=== PATIENT | female | born 1955 | race Caucasian/White ===

== ENCOUNTER 2021-08-13 10:01 | Outpatient (CLI) | payer BC | END 2021-08-13 10:02 | disposition home or self-care (01) | LOC: RAD-FRANK 10:01 | PROVIDERS: ATTEND Nurse Practitioner Family | DX: M25.561 Pain in right knee (principal); M25.861 Other specified joint disorders, right knee ==

== ENCOUNTER 2022-04-10 14:15 | Outpatient (CLI) | payer BC ==
[2022-04-10 15:35] LABS: #Basophils 0.1 10x3/uL (0.0-0.2); #Eosinphils 0.1 10x3/uL (0.0-0.5); #Monocytes 0.7 10x3/uL (0.0-1.1); #Neutrophils 4.5 10x3/uL (1.5-8.4); %Basophils 1.1 % (0.0-2.0); %Eosinophils 1.1 % (0.0-6.0); %Lymphocytes 24.6 % (18.0-47.0); %Monocytes 9.1 % (0.0-10.0); %Neutrophils 63.8 % (40.0-75.0); Hemoglobin 12.3 g/dL (12.0-15.5); Mean Corpuscular HGB CONC 33.2 g/dL (32.0-36.0); Mean Corpuscular Hemoglobin 31.1 pg (27.0-33.0); Mean Corpuscular Volume 93.7 fl (81.6-98.3); Platelet Count 346 10x3/uL (150-450); RBC Distribution Width 12.7 % (11.5-14.5); Red Blood Cell (RBC) Count 3.96 10x6/uL (3.90-5.03); White Blood Cell (WBC) Count 7.1 10x3/uL (3.5-10.5)
[2022-04-10 15:50] LABS: Anion Gap 16 mmol/L (10-20); BUN (Urea Nitrogen) 30 mg/dL (9.8-20.1); Calc. Creatinine Clearance 0 mL/min (70-130); Calcium 9.6 mg/dL (7.8-10.44); Carbon Dioxide 27 mmol/L (23-31); Chloride 103 mmol/L (98-107); Estimated GFR 76; Glucose 111 mg/dL (80-115); Potassium 4.2 mmol/L (3.5-5.1); Sodium 142 mmol/L (136-145)
[2022-04-10 16:34] LABS: Prothrombin Time 10.9 sec (9.5-12.1)
== END 2022-04-10 14:16 | disposition home or self-care (01) ==
LOC: LABBT 14:15
PROVIDERS: ATTEND Orthopaedic Surgery
DX: Z01.812 Encounter for preprocedural laboratory examination (principal); M17.11 Unilateral primary osteoarthritis, right knee; Z20.822 Contact with and (suspected) exposure to COVID-19
CPT/HCPCS: 80048; 85025; 85610; 87081; 87811; 93005; 93010

== ENCOUNTER 2022-04-15 06:15 | Observation (INO) | payer BC ==
[2022-04-11 10:17] VITALS: BMI 32.8
[2022-04-15] MEDS ORDERED: Sodium Chloride 0.9% 100 ML ONE ×2 (07:13→08:55)
[2022-04-15] MEDS ORDERED: Tranexamic Acid 1,000 MG/10 ML VIAL ONE (07:13)
[2022-04-15] MEDS ORDERED: Vancomycin (BATCH) 1.5 GRAM/300 ML BAG ONE (07:14)
[2022-04-15] MEDS ORDERED: Fentanyl 100 MCG/2 ML VIAL ONE ×2 (07:52→13:51)
[2022-04-15] MEDS ORDERED: Midazolam HCl 2 mg/2 ml Vial ONE (07:52)
[2022-04-15] MEDS ORDERED: fentaNYL Citrate/PF 100 MCG/2 ML SYRINGE ONE (08:53)
[2022-04-15] MEDS ORDERED: HYDROcodone/Acetaminophen 10/325 mg Tablet PO PRN ×3 (08:55→09:00)
[2022-04-15] MEDS ORDERED: Famotidine 20 MG TAB ONE (08:55)
[2022-04-15] MEDS ORDERED: Promethazine HCl 25 MG/ML VIAL IM PRN ×2 (08:55→09:00)
[2022-04-15] MEDS ORDERED: Acetaminophen 325 MG TAB PO PRN (08:55)
[2022-04-15] MEDS ORDERED: diphenhydrAMINE 25 MG CAP PO PRN (08:55)
[2022-04-15] MEDS ORDERED: Zolpidem Tartrate 5 MG TAB PO PRN ×2 (08:55→09:00)
[2022-04-15] MEDS ORDERED: Ondansetron PF 4 MG/2 ML Vial IVP PRN ×2 (08:55→09:00)
[2022-04-15] MEDS ORDERED: CEFAZOLIN 2 GM VIAL ONE (08:55)
[2022-04-15] MEDS ORDERED: Fentanyl 100 MCG/2 ML VIAL SLOW IVP PRN ×3 (08:55)
[2022-04-15] MEDS ORDERED: Ropivacaine 0.2% 550 ML 550 ML NERVE BLCK SCH (09:00)
[2022-04-15] MEDS ORDERED: ceFAZolin 2 GM/Dextrose 50 ML 2 GM in Premix Bag 1 BAG IVPB SCH (09:00)
[2022-04-15] MEDS ORDERED: Non-Formulary Item 1 EACH (Multivitamin With Minerals [Multiple Vitamin] 1 TABLET Tablet) PO SCH (09:00)
[2022-04-15] MEDS ORDERED: traMADol HCl 50 MG TAB PO PRN ×2 (09:00)
[2022-04-15] MEDS ORDERED: Estrogens, Conjugated 30 GM TUBE VAG SCH (09:00)
[2022-04-15] MEDS ORDERED: Ondansetron PF 4 MG/2 ML Vial ONE (09:08)
[2022-04-15] MEDS ORDERED: Lidocaine 1% PF 5 ML VIAL ONE (09:08)
[2022-04-15] MEDS ORDERED: Ketorolac Tromethamine 30 MG/ML VIAL ONE (09:08)
[2022-04-15] MEDS ORDERED: Dexamethasone 20 MG/5 ML VIAL ONE (09:08)
[2022-04-15] MEDS ORDERED: Phenylephrine 10 MG/ML VIAL ONE (09:08)
[2022-04-15] MEDS ORDERED: PROPOFOL 200 MG/20 ML VIAL ONE (09:08)
[2022-04-15] MEDS ORDERED: Bupivacaine HCl 0.5%/Epinephrine 1:200,000/PF 30 ml Vial ONE (09:08)
[2022-04-15] MEDS ORDERED: Docusate 100 MG CAP PO PRN (09:11)
[2022-04-15] MEDS ORDERED: Bupivacaine PF 0.5% 30 ML VIAL ONE (09:35)
[2022-04-15] MEDS ORDERED: Ketorolac Tromethamine 30 MG/ML VIAL IVP SCH (12:00)
[2022-04-15] MEDS ORDERED: Promethazine HCl 25 MG/ML VIAL IM/IV PRN (12:15)
[2022-04-15] MEDS ORDERED: Ondansetron HCl/PF 4 MG/2 ML Vial IVP PRN (12:15)
[2022-04-15] MEDS: Hydrochlorothiazide 25 MG TAB PO SCH (16:05)
[2022-04-15] MEDS: Ferrous Gluconate 324 MG TAB PO SCH ×2 (16:05→20:12)
[2022-04-15] MEDS: FLUoxetine HCl 20 MG CAP PO SCH (16:05)
[2022-04-15] MEDS: Aspirin 81 mg Enteric Coated Tablet PO SCH ×2 (16:05→20:12)
[2022-04-15] MEDS: Multivitamin W/ Minerals 1 TAB PO SCH (16:06)
[2022-04-15] MEDS: Losartan 25 MG TAB PO SCH (16:06)
[2022-04-15] MEDS: Senokot S 8.6-50 MG TAB PO SCH ×2 (16:06→20:12)
[2022-04-15] MEDS: Ketorolac Tromethamine 30 MG/ML VIAL IVP SCH ×2 (16:07→22:45)
[2022-04-15] MEDS: CEFAZOLIN 2 GM in Sodium Chloride 0.9% 100 ML IVPB SCH (16:19)
[2022-04-15] MEDS: HYDROcodone/Acetaminophen 10/325 mg Tablet PO PRN (16:19)
[2022-04-15] MEDS: metFORMIN 500 MG TAB PO SCH (16:20)
[2022-04-15] MEDS: Sodium Chloride 0.9% 1,000 ML IV SCH ×3 (16:25→22:50)
[2022-04-15] MEDS ORDERED: Simvastatin 10 MG TAB PO SCH (21:00)
[2022-04-16] MEDS: CEFAZOLIN 2 GM in Sodium Chloride 0.9% 100 ML IVPB SCH (00:32)
[2022-04-16 05:30] LABS: Hemoglobin 10.1 g/dL (12.0-16.0); Mean Corpuscular HGB CONC 32.8 g/dL (32.0-36.0); Mean Corpuscular Hemoglobin 32.2 pg (27.0-31.0); Mean Corpuscular Volume 98.1 fL (78.0-98.0); Mean Platelet Volume 7.4 fL (7.4-10.4); Platelet Count 261 thou/uL (130-400); RBC Distribution Width 11.3 % (11.5-14.5); Red Blood Cell (RBC) Count 3.15 mill/uL (4.20-5.40); White Blood Cell (WBC) Count 7.4 thou/uL (4.8-10.8)
[2022-04-16] MEDS: Ketorolac Tromethamine 30 MG/ML VIAL IVP SCH (05:55)
[2022-04-16] MEDS: Sodium Chloride 0.9% 1,000 ML IV SCH (06:19)
[2022-04-16] MEDS: Hydrochlorothiazide 25 MG TAB PO SCH (07:55)
[2022-04-16] MEDS: Senokot S 8.6-50 MG TAB PO SCH (07:55)
[2022-04-16] MEDS: Ferrous Gluconate 324 MG TAB PO SCH (07:56)
[2022-04-16] MEDS: FLUoxetine HCl 20 MG CAP PO SCH (07:56)
[2022-04-16] MEDS: metFORMIN 500 MG TAB PO SCH (07:57)
[2022-04-16] MEDS: Aspirin 81 mg Enteric Coated Tablet PO SCH (07:57)
[2022-04-16] MEDS: Losartan 25 MG TAB PO SCH (07:57)
[2022-04-16] MEDS: Multivitamin W/ Minerals 1 TAB PO SCH (08:59)
[2022-04-16] MEDS: HYDROcodone/Acetaminophen 10/325 mg Tablet PO PRN (11:40)
[2022-04-16 11:42] VITALS: BP 143/68; TEMP 98.2
== END 2022-04-16 11:50 | disposition home or self-care (01) ==
LOC: SDC 06:15 → SURG A 14:31
PROVIDERS: ADMIT Orthopaedic Surgery; ATTEND Orthopaedic Surgery
PROC: 0SRC0J9 Replacement of Right Knee Joint with Synthetic Substitute, Cemented, Open Approach (ICD-10-PCS; principal; 2022-04-15)
PROC: 8E0YXBZ Computer Assisted Procedure of Lower Extremity (ICD-10-PCS; 2022-04-15)
PROC: 3E0T3BZ Introduction of Anesthetic Agent into Peripheral Nerves and Plexi, Percutaneous Approach (ICD-10-PCS; 2022-04-15)
DX: M17.11 Unilateral primary osteoarthritis, right knee (principal); I10 Essential (primary) hypertension; E78.00 Pure hypercholesterolemia, unspecified; E11.9 Type 2 diabetes mellitus without complications; Z87.891 Personal history of nicotine dependence; Z79.84 Long term (current) use of oral hypoglycemic drugs; Z79.899 Other long term (current) drug therapy; Z88.8 Allergy status to other drugs, medicaments and biological substances; Z98.1 Arthrodesis status
CPT/HCPCS: 36415; 85027; 96365; 96366; 96375; 96376; A4306; C1713; C1776; G0378; J0690; J1100; J1885; J2250; J2370; J2405; J2704; J2795; J3010; J3370; J3490; J7050; S0020